=== PATIENT | male | born 1955 | race Caucasian/White ===

== ENCOUNTER 2019-07-15 12:07 | Emergency (ER) | payer SELFPAY ==
--- NOTE | 2019-07-15 13:20 | EDM.PDOC ---
ED HPI GENERAL MEDICAL PROBLEM - General Chief Complaint: Upper Extremity Injury/Pain Stated Complaint: R ARM PAIN Time Seen by Provider: 07/15/19 12:43 Source of Information: Reports: Patient History Limitations: Reports: No Limitations - History of Present Illness INITIAL COMMENTS - FREE TEXT/NARRATIVE: The patient presents with right shoulder pain. This has been going on for about 6 months but the past month has been the worse. He denies any recent injuries. He is restricted with motion by pain. He is right handed. He also says he has some numbness in his arm but no neck pain. Onset: Gradual Duration: Week(s): Location: Reports: Upper Extremity, Right Quality: Reports: Sharp Severity: Moderate Improves with: Reports: Immobilization Worsens with: Reports: Movement Context: Denies: Trauma Associated Symptoms: Reports: No Other Symptoms Right Upper Arm Pain Score (Numeric/FACES): 2 - Related Data Allergies Allergy/AdvReac Type Severity Reaction Status Date / Time Penicillins Allergy Rash Verified 07/15/19 12:26 Home Meds: Home Meds Hydrocodone/Acetaminophen [Hydrocodon-Acetaminophen 5-325] 1 - 2 each PO Q6HR PRN #20 tablet 07/15/19 [Rx] Past Medical History - Past Health History Medical/Surgical History: Denies Medical/Surgical History Social & Family History - Tobacco Use Smoking Status *Q: Never Smoker Second Hand Smoke Exposure: No - Caffeine Use Caffeine Use: Reports: Coffee - Recreational Drug Use Recreational Drug Use: No Review of Systems - Review of Systems Review Of Systems: See Below Constitutional: Reports: No Symptoms Eyes: Reports: No Symptoms Ears: Reports: No Symptoms Nose: Reports: No Symptoms Mouth/Throat: Reports: No Symptoms Respiratory: Reports: No Symptoms Cardiovascular: Reports: No Symptoms GI/Abdominal: Reports: No Symptoms Genitourinary: Reports: No Symptoms Musculoskeletal: Reports: Shoulder Pain (Right) ED EXAM, GENERAL - Physical Exam Exam: See Below Exam Limited By: No Limitations General Appearance: Alert, No Apparent Distress Ears: Normal External Exam Nose: Normal Inspection Head: Atraumatic, Normocephalic Neck: Normal Inspection Respiratory/Chest: No Respiratory Distress Extremities: Other (Pain upon palpation to the right shoulder. Weakness with abduction and internal and external rotation of the shoulder. He has decreased sensation to the right arm. He can move his hand and flext his wrist and move his right arm. He has good pulses diatally.) Course - Vital Signs Last Recorded V/S: Last Vital Signs Temp 97.8 F 07/15/19 12:24 Pulse 68 07/15/19 12:24 Resp 16 07/15/19 12:24 BP 161/95 H 07/15/19 12:24 Pulse Ox 94 L 07/15/19 12:24 - Re-Assessments/Exams Free Text/Narrative Re-Assessment/Exam: 07/15/19 13:25 I will give him something for pain and refer him to Dr Leung. He will need an MRI of the shoulder. Departure - Departure Time of Disposition: 13:25 Disposition: Home, Self-Care 01 Condition: Good Clinical Impression: Rotator cuff dysfunction Qualifiers: Laterality: right Qualified Code(s): M67.911 - Unspecified disorder of synovium and tendon, right shoulder Right shoulder pain Qualifiers: Chronicity: chronic Qualified Code(s): M25.511 - Pain in right shoulder; G89.29 - Other chronic pain - Discharge Information *PRESCRIPTION DRUG MONITORING PROGRAM REVIEWED*: No *COPY OF PRESCRIPTION DRUG MONITORING REPORT IN PATIENT SHANTAL: No Prescriptions: Hydrocodone/Acetaminophen [Hydrocodon-Acetaminophen 5-325] 1 - 2 each PO Q6HR PRN #20 tablet PRN Reason: Pain Referrals: PCP,None [Primary Care Provider] - Lc Leung MD [Physician] - 1 Week Forms: ED Department Discharge Additional Instructions: Take motrin or tylenol for pain. If that does not help, try the hydrocodone. Follow up with Dr Leung within a week. Please return if you are worse. Sepsis Event Note - Evaluation Sepsis Screening Result: No Definite Risk - Focused Exam Vital Signs: Vital Signs Temp Pulse Resp BP Pulse Ox 07/15/19 12:24 97.8 F 68 16 161/95 H 94 L Date Exam was Performed: 07/15/19 Time Exam was Performed: 13:20
== END 2019-07-15 13:32 | disposition home or self-care (01) ==
LOC: JD.ED 12:07
CPT/HCPCS: 99283